=== PATIENT | male | born 2000 | race Caucasian/White ===

== ENCOUNTER 2020-12-26 06:59 | Emergency (ER) | payer OTHER ==
[~2020-12-26] VITALS: Ht 182.9 cm; Wt 76.0 kg
[2020-12-26] MEDS ORDERED: BENZONATATE 100 MG CAP PO ONE (07:40)
[2020-12-26] MEDS ORDERED: ACETAMINOPHEN 500 MG TAB PO ONE (07:40)
[2020-12-26 08:03] VITALS: O2SAT 98
--- NOTE | 2020-12-26 08:14 | REP ---
INDICATION: cough, fever. COMPARISON: No comparison study. TECHNIQUE: Portable upright AP chest radiograph. FINDINGS: The lungs are well inflated and free of infiltrate. Pleural angles are sharp. Heart size is normal. Pulmonary vasculature is not increased. IMPRESSION: No active disease. <Electronically signed by Abhijit Osman > 12/26/20 [id number]
[2020-12-26] MEDS ORDERED: TESS100C PO (09:29)
[2020-12-26] MEDS ORDERED: PENI500T PO (09:29)
[2020-12-26 09:32] VITALS: BP 118/72
== END 2020-12-26 09:35 | disposition home or self-care (01) ==
LOC: M ED 06:59
DX: J02.0 Streptococcal pharyngitis (principal); J98.01 Acute bronchospasm